=== PATIENT | female | born 1945 | race Caucasian/White ===

== ENCOUNTER → 2016-03-10 | Outpatient (CLI) | payer OTHER, BC ==
--- NOTE | 2016-03-10 14:15 | MR ---
MRI of the Lumbar Spine (Without Contrast) March 10, 2016 Indication: Severe scoliosis. Technique: Sagittal and axial T1 and T2 , and sagittal STIR MR sequences of the lumbar spine without contrast. Axial imaging from T12 through S1. Additionally, coronal T2 sequences were obtained to opti ruddy characterize spinal curvature. Comparison: Lumbar spine series dated April 11, 2014. Findings: The coronal T2 sequence reveals mild levocurvature apex at L4 with a Brian angle of 14 degre es between the inferior endplate of L2 and inferior endplate of L5 and mild to moderate dextrocurvatu re apex at L1-L2 with a Brian angle of 24 degrees between the inferior endplate of T12 and inferior en dplate of L1. L2 is translated to the right 5 mm on L3, L3 is translated to the right 10 mm on L4, an d L4 is translated to the left 10 mm on L5. The sagittal imaging reveals 2 mm of retrolisthesis of L1 on L2, and 2 mm retrolisthesis of L3 on L4. No compression fracture or pars defect. No bone marrow replacing lesion. Diskogenic edema is present at the L1-L2 level. The retroperitoneal soft tissue planes are within normal limit. The abdominal aorta is normal in hank sharda. The conus medullaris resides at the L1 level. No cord compression. T11-T12: Normal disk. Widely patent central canal and neural foramina. T12-L1: Disk desiccation, minimal posterior disk bulge, and facet hypertrophy result in minimal centr al canal narrowing and minimal left neural foraminal stenosis. L1-L2: Grade 1 retrolisthesis of L1-L2 and diffuse broad-based osteophyte disk complex and facet hype rtrophy result in mild central canal narrowing and moderate to severe left neural foraminal narrowing . The right neural foramen is widely patent. L2-L3: Spinal curvature, minimal posterior disk bulge, and moderate facet hypertrophy result in mild to moderate central canal narrowing, moderate left and mild right neural foraminal narrowing. L3-L4: Spinal curvature, mild osteophyte disk complex, and marked facet hypertrophy and ligamentum fl avum thickening result in moderate central canal narrowing and mild to moderate bilateral neural fora jackelin narrowing. An eccentric right-sided facet spur results in moderate to severe narrowing of the right ventrolateral recess, potentially affecting the right L4 nerve root as it courses towards the n eural foramen. The central canal measures 6 mm AP. L4-L5: Moderate central canal narrowing, moderate bilateral ventrolateral recess narrowing, and moder ate to severe right and moderate left neural foraminal narrowing due to disk desiccation and broad-ba sed disk bulge combined with facet hypertrophy and ligamentum flavum thickening. L5-S1: Severe left and mild to moderate right neural foraminal stenosis due to facet and uncovertebra l spurs. Mild central canal narrowing due to disk desiccation and minimal posterior disk bulge combin ed with facet hypertrophy and ligamentum flavum thickening. Impression: 1. Biphasic curvature of the lumbar spine with diskogenic Modic changes at the L1-L2 level suggesting possible instability at this level. 2. No compression fracture, pars defect or bone marrow-replacing lesion. 3. Multilevel degenerative disk and facet arthropathy resulting in multilevel mild to moderate centra l canal narrowing. The worst degree of central stenosis is present at L3-L4 and L4-L5 (moderate). 4. Multilevel neural foraminal stenosis worse on the left at L1-L2 and left at L2-L3, and on the righ t at L3-L4. The right L4 nerve root is potentially affected by a prominent right-sided facet spur at the L3-L4 level.
== END ==
LOC: FIMAGING 12:08
PROVIDERS: ATTEND Physical Medicine & Rehabilitation
DX: M41.86 Other forms of scoliosis, lumbar region (principal); M51.36 Other intervertebral disc degeneration, lumbar region; M46.96 Unspecified inflammatory spondylopathy, lumbar region; M48.06 Spinal stenosis, lumbar region; M51.86 Other intervertebral disc disorders, lumbar region

== ENCOUNTER → 2017-06-26 | Outpatient (CLI) | payer OTHER, BC | LOC: FIMAGING 13:17 | PROVIDERS: ATTEND Nurse Practitioner Adult Health | DX: Z12.31 Encounter for screening mammogram for malignant neoplasm of breast (principal) ==

== ENCOUNTER → 2017-10-26 | Outpatient (CLI) | payer OTHER, BC | LOC: FIMAGING 10:10 | PROVIDERS: ATTEND Nurse Practitioner Adult Health | DX: Z13.820 Encounter for screening for osteoporosis (principal); M81.0 Age-related osteoporosis without current pathological fracture; Z78.0 Asymptomatic menopausal state ==

== ENCOUNTER → 2018-02-05 | Outpatient (CLI) | payer OTHER, BC | LOC: GIMAGING 12:08 | PROVIDERS: ATTEND Nurse Practitioner | DX: M79.672 Pain in left foot (principal) | CPT/HCPCS: 73630-PO ==

== ENCOUNTER → 2018-07-02 | Outpatient (CLI) | payer OTHER, BC | LOC: BHFA 11:30 | PROVIDERS: ATTEND Internal Medicine Cardiovascular Disease | DX: R06.09 Other forms of dyspnea (principal); R53.83 Other fatigue ==